=== PATIENT | female | born 1995 | race Hispanic/Latino ===

== ENCOUNTER 2023-12-13 11:26 | Day surgery (SDC) | payer OTHER ==
[2023-12-13] MEDS ORDERED: hydrALAZINE 20 MG/ML VIAL SLOW IVP PRN (12:39)
== END 2023-12-13 13:15 | disposition home health service (06) ==
LOC: CSHLD/OP 11:26
PROVIDERS: ATTEND Obstetrics & Gynecology
DX: O46.92 Antepartum hemorrhage, unspecified, second trimester (principal); O99.512 Diseases of the respiratory system complicating pregnancy, second trimester; J45.909 Unspecified asthma, uncomplicated; O09.42 Supervision of pregnancy with grand multiparity, second trimester; Z3A.23 23 weeks gestation of pregnancy; Z90.49 Acquired absence of other specified parts of digestive tract; Z98.890 Other specified postprocedural states
CPT/HCPCS: 99283

== ENCOUNTER 2024-03-15 10:52 | Day surgery (SDC) | payer OTHER ==
[2024-03-15 11:16] VITALS: BMI 42.8
[2024-03-15] MEDS ORDERED: hydrALAZINE 20 MG/ML VIAL SLOW IVP PRN (11:43)
[2024-03-15] MEDS ORDERED: Lactated Ringer's 1,000 ML IV SCH (12:00)
[2024-03-15 13:16] LABS: Bilirubin Neg (Negative); Blood, Urine Negative (Negative); Clarity Cloudy (Clear); Glucose, Urine (Dipstick) Normal (Negative); Ketone, Urine Negative (Negative); Leukocyte 25 (Negative); Nitrite Negative (Negative); Protein, Urine (Dipstick) 15 mg/dl (Neg-Trace); Specific Gravity, Urine 1.015 (1.005-1.030); Urobilinogen Normal mg/dL (Less than 2)
[2024-03-15 13:29] LABS: Bacteria/HPF Rare-Few HPF (None Seen); CAUTI Indications for Culture Pregnancy; RBC/HPF None Seen HPF (0-3); WBC/HPF 0-3 HPF (0-3)
[2024-03-15 13:31] LABS: Urine Culture Reflex Yes Yes
== END 2024-03-15 14:40 | disposition home or self-care (01) ==
LOC: CSHLD/OP 10:52
PROVIDERS: ATTEND Obstetrics & Gynecology
DX: O47.03 False labor before 37 completed weeks of gestation, third trimester (principal); O09.43 Supervision of pregnancy with grand multiparity, third trimester; O34.211 Maternal care for low transverse scar from previous cesarean delivery; Z3A.36 36 weeks gestation of pregnancy; Z87.59 Personal history of other complications of pregnancy, childbirth and the puerperium; Z79.899 Other long term (current) drug therapy
CPT/HCPCS: 76815; 81001; 87086; 99283

== ENCOUNTER 2024-03-16 19:06 | Day surgery (SDC) | payer OTHER ==
[2024-03-16 19:36] VITALS: BMI 43.4
== END 2024-03-17 00:05 | disposition home or self-care (01) ==
LOC: CSHLD/OP 19:06
PROVIDERS: ATTEND Obstetrics & Gynecology
DX: O47.03 False labor before 37 completed weeks of gestation, third trimester (principal); O09.43 Supervision of pregnancy with grand multiparity, third trimester; Z3A.36 36 weeks gestation of pregnancy
CPT/HCPCS: 87480; 87510; 87660; 99284

== ENCOUNTER 2024-03-19 16:01 | Inpatient (IN) | payer OTHER ==
[2024-03-19] MEDS ORDERED: hydrALAZINE 20 MG/ML VIAL SLOW IVP PRN ×2 (17:11→18:51)
[2024-03-19] MEDS ORDERED: Methylergonovine 0.2 MG/ML VIAL IM PRN (18:51)
[2024-03-19] MEDS ORDERED: HYDROcodone/Acetaminophen 5/325 mg Tablet PO PRN ×2 (18:51)
[2024-03-19] MEDS ORDERED: Acetaminophen 500 MG TAB PO PRN (18:51)
[2024-03-19] MEDS ORDERED: Promethazine HCl 25 MG/ML VIAL IM PRN (18:51)
[2024-03-19] MEDS ORDERED: Carboprost 250 MCG/ML AMP IM PRN (18:51)
[2024-03-19] MEDS ORDERED: Misoprostol 200 MCG TAB PR PRN (18:51)
[2024-03-19] MEDS ORDERED: Zolpidem Tartrate 5 MG TAB PO PRN (18:51)
[2024-03-19] MEDS ORDERED: Lidocaine 1% (PF) 30 ML VIAL SC PRN (18:51)
[2024-03-19] MEDS ORDERED: Oxytocin 30 units/NS 500 ML 500 ML IV SCH (19:00)
[2024-03-19] MEDS: Penicillin G Potassium 5 MILL.UNITS in Sodium Chloride 0.9% 100 ML IVPB SCH (19:18)
[2024-03-19] MEDS: Lactated Ringer's 1,000 ML IV SCH (19:18)
[2024-03-19 19:24] VITALS: BMI 43.0
[2024-03-19 19:29] LABS: Hematocrit 31.5 % (34.9-44.5); Hemoglobin 10.4 g/dL (12.0-15.5); Mean Corpuscular Hemoglobin 24.2 pg (27.0-33.0); Mean Corpuscular Volume 73.3 fL (81.6-98.3); Platelet Count 216 10x3/uL (150-450); RBC Distribution Width 14.4 % (11.5-14.5); White Blood Cell (WBC) Count 12.59 10x3/uL (3.5-10.5)
[2024-03-19 23:20] LABS: Syphilis Antibody Nonreactive (Nonreactive); Syphilis Antibody Index 0.08 S/CO (<1.00 Non-Reactive)
[2024-03-19 23:28] LABS: HBsAg Index 0.22 S/CO (0-0.99); Hep B Surf Ag - L&D Non-Reactive S/CO (NonReactive)
[2024-03-19] MEDS: Penicillin G 2.5 MILL.units 2.5 MILL.UNITS in Premix 1 BAG IVPB SCH (23:51)
[2024-03-20] MEDS: fentaNYL 50 mcg/mL 1 mL Vial SLOW IVP PRN (02:37)
[2024-03-20] MEDS: Ondansetron PF 4 MG/2 ML Vial IVP PRN (02:41)
[2024-03-20] MEDS ORDERED: Ondansetron PF 4 MG/2 ML Vial IVP PRN (14:23)
[2024-03-20] MEDS ORDERED: Methylergonovine 0.2 MG/ML VIAL IM PRN (14:23)
[2024-03-20] MEDS ORDERED: Misoprostol 200 MCG TAB VAG PRN (14:23)
[2024-03-20] MEDS ORDERED: hydrALAZINE 20 MG/ML VIAL SLOW IVP PRN (14:23)
[2024-03-20] MEDS ORDERED: Promethazine HCl 25 MG/ML VIAL IM PRN (14:23)
[2024-03-20] MEDS ORDERED: Benzocaine-Menthol 82.5 ML CAN TOP PRN (14:23)
[2024-03-20] MEDS ORDERED: Lanolin Ointment 7 GM TUBE TOP PRN (14:23)
[2024-03-20] MEDS ORDERED: Preparation H Ointment 28 GM TUBE PR PRN (14:23)
[2024-03-20] MEDS ORDERED: Milk Of Magnesia 30 ML UDCUP PO PRN (14:23)
[2024-03-20] MEDS ORDERED: Bisacodyl 10 MG SUPP PR PRN (14:23)
[2024-03-20] MEDS ORDERED: Oxytocin 30 units/NS 500 ML 500 ML IV SCH (14:30)
[2024-03-20] MEDS: Ibuprofen 800 MG TAB PO PRN (15:25)
[2024-03-20] MEDS: Lactated Ringer's 1,000 ML IV SCH (17:51)
[2024-03-20] MEDS: Boostrix 0.5 ML (Tdap) VIAL (>/=7 yrs of age) IM ONE (17:52)
[2024-03-20] MEDS: Ferrous Sulfate 325 MG TAB PO SCH (17:53)
[2024-03-20] MEDS: Ibuprofen 800 MG TAB PO SCH (21:17)
[2024-03-20] MEDS: Docusate 100 MG CAP PO SCH (21:17)
[2024-03-21 04:25] LABS: #Basophils 0.03 10x3/uL (0.0-0.2); #Eosinophils 0.16 10x3/uL (0.0-0.5); #Monocytes 0.95 10x3/uL (0.0-1.1); #Neutrophils 5.52 10x3/uL (1.5-8.4); %Basophils 0.3 % (0.0-2.0); %Eosinophils 1.6 % (0.0-6.0); %Lymphocytes 33.2 % (18.0-47.0); %Monocytes 9.5 % (0.0-10.0); %Neutrophils 54.9 % (40.0-75.0); Hematocrit 28.8 % (34.9-44.5); Hemoglobin 9.3 g/dL (12.0-15.5); Mean Corpuscular HGB CONC 32.3 g/dL (32.0-36.0); Mean Corpuscular Hemoglobin 23.8 pg (27.0-33.0); Mean Corpuscular Volume 73.8 fL (81.6-98.3); Mean Platelet Volume 10.4 fL (7.4-10.4); Platelet Count 207 10x3/uL (150-450); RBC Distribution Width 14.6 % (11.5-14.5); White Blood Cell (WBC) Count 10.05 10x3/uL (3.5-10.5)
[2024-03-21] MEDS: Prenatal Vitamin 1 TAB PO SCH (08:21)
[2024-03-21] MEDS: HYDROcodone/Acetaminophen 5/325 mg Tablet PO PRN (10:28)
[2024-03-21 11:43] VITALS: BP 108/55; TEMP 97.9
== END 2024-03-21 17:45 | disposition home or self-care (01) | DRG 807 ==
LOC: CSHLD/OP 16:01 → CSHLD 18:51 → CSHPP 03-20 16:00
PROVIDERS: ADMIT Obstetrics & Gynecology; ATTEND Obstetrics & Gynecology
PROC: 10E0XZZ Delivery of Products of Conception, External Approach (ICD-10-PCS; principal; 2024-03-19)
PROC: 10H07YZ Insertion of Other Device into Products of Conception, Via Natural or Artificial Opening (ICD-10-PCS; 2024-03-19)
PROC: 10907ZC Drainage of Amniotic Fluid, Therapeutic from Products of Conception, Via Natural or Artificial Opening (ICD-10-PCS; 2024-03-19)
DX: O34.219 Maternal care for unspecified type scar from previous cesarean delivery (principal); Z37.0 Single live birth; O99.52 Diseases of the respiratory system complicating childbirth; J45.909 Unspecified asthma, uncomplicated; Z3A.36 36 weeks gestation of pregnancy
CPT/HCPCS: 36415; 85025; 85027; 86780; 86850; 86900; 86901; 87340; 99285; J2405; J2540; J3010; J7120